=== PATIENT | male | born 1950 | race Caucasian/White ===

== ENCOUNTER 2018-04-10 10:41 | Emergency (ER) | payer SELFPAY ==
[2018-04-10] MEDS ORDERED: ASPIRIN 81 MG TABLET, CHEWABLE PO ONE (10:58)
[2018-04-10 11:10] LABS: ABSOLUTE LYMPHOCYTES (AUTO) 0.8 10^3/uL (0.5-4.7); ABSOLUTE MONOCYTES (AUTO) 0.9 10^3/uL (0.1-1.4); BASOPHILS % (AUTO) 0.6 % (0-2); EOSINOPHILS % (AUTO) 0.5 % (0-6); HEMATOCRIT 41.9 % (37.9-51.0); LYMPHOCYTES % (AUTO) 10.8 % (13-45); MEAN CORPUSCULAR HEMOGLOBIN 35.6 pg (27.0-33.4); MEAN CORPUSCULAR HGB CONC 35.8 g/dL (32.0-36.0); MEAN CORPUSCULAR VOLUME 99 fl (80-97); PLATELET COUNT 145 10^3/uL (150-450); RED BLOOD COUNT 4.21 10^6/uL (4.35-5.55); RED CELL DISTRIBUTION WIDTH 12.8 % (11.5-14.0); SEGMENTED NEUTROPHILS % (AUTO) 77.1 % (42-78); TOTAL CELLS COUNTED % (AUTO) 100 %; WHITE BLOOD COUNT 7.8 10^3/uL (4.0-10.5)
[2018-04-10] MEDS ORDERED: HEPARIN SODIUM,PORCINE/D5W 25,000 UNIT/250 ML RTUINJ IV ONE (11:19)
[2018-04-10] MEDS ORDERED: HEPARIN SOD (PORCINE) 1,000 UNIT/ML 10 ML VIAL ONE (11:20)
[2018-04-10 11:25] LABS: ALANINE AMINOTRANSFERASE 43 U/L (21-72); ALBUMIN 4.4 g/dL (3.5-5.0); ALKALINE PHOSPHATASE 60 U/L (38-126); ANION GAP 10 (5-19); ASPARTATE AMINO TRANSFERASE 231 U/L (17-59); BILIRUBIN,DIRECT 0.3 mg/dL (0.0-0.4); BLOOD UREA NITROGEN 7 mg/dL (7-20); CALCIUM 9.8 mg/dL (8.4-10.2); CARBON DIOXIDE 30 mmol/L (22-30); CHLORIDE 102 mmol/L (98-107); CREATINE KINASE 1260 U/L (55-170); GLUCOSE 110 mg/dL (75-110); POTASSIUM 4.3 mmol/L (3.6-5.0); SODIUM 142.4 mmol/L (137-145); TOTAL PROTEIN 7.3 g/dL (6.3-8.2)
--- NOTE | 2018-04-10 11:26 | ER Document Report ---
ED Cardiac - General Chief Complaint: Chest Pain Stated Complaint: CHEST PAIN Mode of Arrival: Ambulatory Information source: Patient Notes: 67-year-old man with known prior medical history visiting from [place]. He is a 3 pack per day smoker. His states that he has been having chest pain on and off since March 26. Patient states he started having 5/10 chest pain at approximately 1:45 PM. Patient states that approximately 2:30 PM yesterday, the pain did increase to 10/10. He states that the pain gradually eased up but has never fully resolved since that time. He presented with continued pain in the retrosternal area radiating right through to the back. He denies shortness of breath. He denies any radiation down the arms. He denies any abdominal pain. TRAVEL OUTSIDE OF THE [place] IN LAST 30 DAYS: No - HPI Patient complains to provider of: Chest pain. denies: Shortness of breath Use of: Alcohol Was the onset of pain: Sudden Is the pain a: New problem Chest pain location: Substernal Quality of pain: Constant, Heaviness Chest pain radiation location: Back Severity now: Moderate Severity at worst: Severe Pain level currently: 3 Chest pain precipitating factors: At Rest Cardiac risk factors: Smoker Associated symptoms: denies: Abdominal pain, Headache, Nausea/vomiting, Neck pain, Palpitations Exacerbated by: Denies Relieved by: Nothing Similar symptoms previously: Yes Recently seen / treated by doctor: No - Related Data Allergies/Adverse Reactions: No Known Allergies Allergy (Unverified 04/10/18 10:42) Past Medical History - General Information source: Patient - Social History Smoking Status: Current Every Day Smoker Cigarette use (# per day): Yes - 3 packs per day Chew tobacco use (# tins/day): No Frequency of alcohol use: Heavy Drug Abuse: None Lives with: Spouse/Significant other Family History: None Patient has suicidal ideation: No Patient has homicidal ideation: No - Medical History Medical History: Negative Surgical Hx: Negative Review of Systems - Review of Systems Constitutional: denies: Chills, Fever EENT: No symptoms reported Cardiovascular: See HPI, Chest pain Respiratory: No symptoms reported Gastrointestinal: No symptoms reported Genitourinary: No symptoms reported Male Genitourinary: No symptoms reported Musculoskeletal: No symptoms reported Skin: No symptoms reported Hematologic/Lymphatic: No symptoms reported Neurological/Psychological: No symptoms reported Physical Exam - Vital signs Vitals: Pulse Ox 100 04/10/18 10:54 Notes: Physical exam: GENERAL: 67-year-old man, thin, does complain of retrosternal chest pain radiating to the back. HEAD: Atraumatic, normocephalic. EYES: Pupils equal round and reactive to light, extraocular movements intact, sclera anicteric, conjunctiva are normal. ENT: TMs normal, nares patent, oropharynx clear without exudates. Moist mucous membranes. NECK: Normal range of motion, supple without obvious mass or JVD. LUNGS: Breath sounds clear to auscultation bilaterally and equal. No wheezes rales or rhonchi. HEART: Regular rate and rhythm. No murmurs or rubs appreciated. ABDOMEN: Soft, normoactive bowel sounds. No tenderness to palpation. No guarding, no rebound. No masses appreciated. EXTREMITIES: Upper extremity pulses are the same. Normal range of motion, no pitting or edema. No clubbing or cyanosis. NEUROLOGICAL: Cranial nerves II through XII grossly intact. Normal speech, moving all extremities. PSYCH: Normal mood, normal affect. SKIN: Warm, Dry, normal turgor, no rashes or lesions noted. Course - Re-evaluation Re-evalutation: 04/10/18 11:24 Patient's EKG suggests an acute inferior wall PR. Patient was given aspirin. There are sick significant concerns regarding possible dissection given radiation right through to the back. Anticoagulants/thrombolytics held off because of concerns for these concerns. Patient's pain has been going on for more than 12 hours and almost 24 hours. The decision was made to send the patient to the CT scanner for CTA of the aorta. I discussed the case with Dr. Zamora of cardiology and [facility] who was agreed with holding off on anticoagulation and we will be flying the patient right to [facility] to go to the [facility]. 04/10/18 11:25 I discussed plan of transfer with the patient and his as well as the likelihood for immediate cardiac catheterization once the patient arrives at [facility]. Currently, the patient's pain is 1-2. When he had arrived to the ER, he said his pain was 5 out of 10. 04/10/18 11:[address] Phelps who is reviewing CT scan. There is evidence of peripheral vascular disease but no obvious dissection or aneurysm. Patient has already in flight. Nurse in charge to notify [facility] cardiology service preliminary results. The CT scan on disc was sent with the patient. 04/10/18 11:54 04/10/18 11:55 - Vital Signs Vital signs: Temp Pulse Resp BP Pulse Ox 98.5 F 19 116/79 100 04/10/18 11:26 04/10/18 11:26 04/10/18 11:26 04/10/18 11:26 - Laboratory Result Diagrams: 04/10/18 10:54 04/10/18 10:54 Laboratory results interpreted by me: 04/10/18 04/10/18 04/10/18 10:54 10:54 10:54 RBC 4.21 L MCV 99 H MCH 35.6 H Plt Count 145 L Lymphocytes % 10.8 L AST 231 H Creatine Kinase 1260 H CK-MB (CK-2) 44.60 H - Diagnostic Test Radiology reviewed: Image reviewed, Reports reviewed - Chest x-ray shows no obvious wide mediastinum - EKG Interpretation by Me Rate: Normal Rhythm: NSR - EKG shows normal sinus rhythm with ST elevations in II, III, and F with T-wave inversions V5 and V6. There is no old EKG to compare. Small Q in lead III Critical Care Note - Critical Care Note Total time excluding time spent on procedures (mins): 60 Discharge - Discharge Clinical Impression: Acute PR Condition: Serious Disposition: [facility]
--- NOTE | 2018-04-10 11:27 | RADIOLOGY REPORT (SQ) ---
EXAM DESCRIPTION: CHEST SINGLE VIEW COMPLETED DATE/TIME: 04/10/2018 11:10 am REASON FOR STUDY: Chest Pain COMPARISON: None. EXAM PARAMETERS: NUMBER OF VIEWS: One view. TECHNIQUE: Single frontal radiographic view of the chest acquired. RADIATION DOSE: NA LIMITATIONS: None. FINDINGS: LUNGS AND PLEURA: No opacities, masses or pneumothorax. No pleural effusion. MEDIASTINUM AND HILAR STRUCTURES: No masses. Contour normal. HEART AND VASCULAR STRUCTURES: Heart normal in size. Normal vasculature. BONES: No acute findings. HARDWARE: None in the chest. OTHER: No other significant finding. IMPRESSION: NO ACUTE RADIOGRAPHIC FINDING IN THE CHEST. TECHNICAL DOCUMENTATION: JOB ID: [id number] [employer]- All Rights Reserved Reading location - IP/workstation name: [email or web address]
[2018-04-10 11:35] LABS: CREATINE KINASE MB 44.6 ng/mL (<4.55)
[2018-04-10 11:38] VITALS: BP 116/79
--- NOTE | 2018-04-10 11:49 | RADIOLOGY REPORT (SQ) ---
EXAM DESCRIPTION: CTA ABDOMEN COMPLETED DATE/TIME: 04/10/2018 11:20 am REASON FOR STUDY: DISSECTION PROTOCOL COMPARISON: Chest radiograph same day TECHNIQUE: CTA scan of the thoracic and abdominal aorta extending to the iliac bifurcation performed with intravenous contrast using helical scanning technique with dynamic intravenous contrast injecti on. Images reviewed with lung, soft tissue, and bone windows. Reconstructed coronal and sagittal MPR images reviewed. All images stored on PACS. Advanced 3D imaging as volume rendering, MIPS, SSD performed? yes All CT scanners at this facility use dose modulation, iterative reconstruction, and/or weight based d osing when appropriate to reduce radiation dose to as low as reasonably achievable (ALARA). [facility]: Dose Right [facility]: CareDose [facility]: Dose Right [facility]: Teradose 4D [facility]: AppSame CONTRAST TYPE AND DOSE: 65 mL Omnipaque 350- low osmolar. RENAL FUNCTION: Pending at the time of the exam. Exam performed due to medical necessity. LIMITATIONS: None. FINDINGS: AORTA AND VESSELS: No aneurysm or dissection. Scattered calcified and noncalcified plaque with extensive noncalcified plaque of the infrarenal abdominal aorta resulting in approximately 50% stenosis. No large central pulmonary embolus. However, contrast is not timed for evaluation of the pulmonary vasculature. LUNGS: No focal consolidation, pleural effusion, or pneumothorax. Centrilobular and paraseptal emphy sema, most pronounced of the upper lobes. LIVER: Normal size. No masses or dilated ducts. MEDIASTINUM: Heart size is normal. No lymphadenopathy. SPLEEN: Normal size. No focal lesions. PANCREAS: No masses. No significant calcifications. No adjacent inflammation or peripancreatic fluid collections. Pancreatic duct not dilated. GALLBLADDER: No identified stones by CT criteria. No inflammatory changes to suggest cholecystitis. ADRENAL GLANDS: No significant masses or asymmetry. RIGHT KIDNEY AND URETER: No mass, calculi or urinary tract obstruction. LEFT KIDNEY AND URETER: No mass, calculi or urinary tract obstruction. RETROPERITONEUM: No retroperitoneal adenopathy, hemorrhage or masses. BOWEL AND PERITONEAL CAVITY: No masses or inflammatory changes. No free fluid or peritoneal masses. APPENDIX: Normal. ABDOMINAL WALL: No masses. No hernias. BONY STRUCTURES: No significant or acute findings. 3-D IMAGING: Confirms the above findings. OTHER: No other significant finding. IMPRESSION: No aortic aneurysm or dissection. Extensive noncalcified plaque of the infrarenal abdom inal aorta resulting in approximately 50% stenosis. This report was called to KIANA MOREIRA MD at11:40 on 04/10/2018. TECHNICAL DOCUMENTATION: JOB ID: [id number] Quality ID # [id number]: Final reports with documentation of one or more dose reduction techniques (e.g., Au tomated exposure control, adjustment of the mA and/or kV according to patient size, use of iterative reconstruction technique) 2010 [employer]- All Rights Reserved Reading location - IP/workstation name: [email or web address]
--- NOTE | 2018-04-10 11:57 | RADIOLOGY REPORT (SQ) ---
EXAM DESCRIPTION: CTA CHEST COMPLETED DATE/TIME: 04/10/2018 11:20 am REASON FOR STUDY: dissection protocol COMPARISON: Same day chest radiograph TECHNIQUE: CT scan of the chest performed using helical scanning technique with dynamic intravenous contrast injection. Images reviewed with lung, soft tissue and bone windows. Reconstructed coronal and sagittal MPR images reviewed. Additional 3 dimensional post-processing performed to develop Maximal Intensity Projection images (SD P). All images stored on PACS. All CT scanners at this facility use dose modulation, iterative reconstruction, and/or weight based d osing when appropriate to reduce radiation dose to as low as reasonably achievable (ALARA). [facility]: Dose Right [facility]: CareDose [facility]: Dose Right [facility]: Teradose 4D [facility]: DoveConviene CONTRAST TYPE AND DOSE: contrast/concentration: Isovue 350.00 mg/ml; Total Contrast Delivered: 65.0 ml; Total Saline Delivered: 75.0 ml 65 mL of Omnipaque 350- low osmolar. Contrast bolus optimized for the pulmonary arteries. Not diagnostic for the aorta. RENAL FUNCTION: Pending at time of exam. Exam performed due to medical necessity. RADIATION DOSE: CT Rad equipment meets quality standard of care and radiation dose reduction techniq ues were employed. CTDIvol: 14.3 - 23.2 mGy. DLP: 737 mGy-cm. . LIMITATIONS: None. FINDINGS: LUNGS AND PLEURA: No masses, infiltrates, or pneumothorax. No pleural effusions or pleura l calcifications. Mild paraseptal and centrilobular emphysema, most pronounced in the upper lobes. AORTA AND GREAT VESSELS: No aneurysm or dissection. Scattered calcified noncalcified plaque. Extens olya noncalcified plaque of the infrarenal abdominal aorta resulting in approximately 50% luminal narr owing. HEART: No pericardial effusion. No significant coronary artery calcifications. PULMONARY ARTERIES: No emboli visualized in the main pulmonary arteries or the segmental branches. HILAR AND MEDIASTINAL STRUCTURES: No identified masses or abnormal nodes. HARDWARE: None in the chest. UPPER ABDOMEN: Prominent vessels are seen within the posterior superior wall of the stomach. No sign ificant findings. Limited exam. THYROID AND OTHER SOFT TISSUES: No masses. No adenopathy. BONES: No acute or significant finding. 3D MIPS: Confirm above findings. OTHER: No other significant finding. IMPRESSION: 1. No acute findings of the chest. Specifically, no pulmonary embolus. 2. Mild paraseptal and centrilobular emphysema. 3. Extensive noncalcified plaque of the infrarenal abdominal aorta are resulting in narrowing of the lumen by approximately 50%. COMMENT: Quality ID # [id number]: Final reports with documentation of one or more dose reduction techniques (e.g., Automated exposure control, adjustment of the mA and/or kV according to patient size, use of iterative reconstruction technique) TECHNICAL DOCUMENTATION: JOB ID: [id number] [employer]- All Rights Reserved Reading location - IP/workstation name: [email or web address]
[2018-04-10 12:02] LABS: TROPONIN I 22.2 ng/mL
[2018-04-10] MEDS ORDERED: ASPIRIN 81 MG TABLET, CHEWABLE ONE (15:48)
--- NOTE | 2018-04-10 17:09 | EKG REPORT ---
SEVERITY:- ABNORMAL ECG - SINUS RHYTHM INFERIOR INFARCT, RECENT CONSIDER POSTERIOR WALL INVOLVEMENT LATERAL LEADS ARE ALSO INVOLVED : Confirmed by: Chetan Zamarripa MD 10-Apr-2018 17:09:00
--- NOTE | 2018-04-10 17:10 | EKG REPORT ---
SEVERITY:- ABNORMAL ECG - SINUS RHYTHM NONSPECIFIC REPOL ABNORMALITY, DIFFUSE LEADS CONSIDER AGE UNDETERMINED INFEROLATERAL NV, NO OLD ELG TO COMARE : Confirmed by: Chetan Zamarripa MD 10-Apr-2018 17:10:06
== END 2018-04-10 11:28 | disposition short-term general hospital (02) ==
LOC: ER 10:41
DX: I21.9 Acute myocardial infarction, unspecified (principal); F17.210 Nicotine dependence, cigarettes, uncomplicated; R07.89 Other chest pain; M54.9 Dorsalgia, unspecified; I73.9 Peripheral vascular disease, unspecified
CPT/HCPCS: 36415; 71045; 71275; 74175; 80053; 82550; 82553; 84484; 85025; 93005; 93010; 99291